=== PATIENT | male | born 1980 | race Caucasian/White ===

== ENCOUNTER 2020-10-15 22:43 | Inpatient (IN) | payer SELFPAY ==
[~2020-10-15] VITALS: Ht 193 cm; Wt 134.4 kg
[2020-10-16 01:18] LABS: BASOPHILS % (AUTO) 0.5 % (0.0-5.0); EOSINOPHILS % (AUTO) 1.2 % (0.0-8.0); HEMATOCRIT 48.5 % (42-54); LYMPHOCYTES % (AUTO) 26.5 % (21.0-51.0); MEAN CORPUSCULAR HEMOGLOBIN 29.5 pg (27.0-33.0); MEAN CORPUSCULAR HGB CONC 35.3 g/dL (32.0-36.0); MEAN CORPUSCULAR VOLUME 83.8 fL (79-99); MONOCYTES % (AUTO) 5.3 % (3.0-13.0); NEUTROPHILS % (AUTO) 66.1 % (40.0-77.0); PLATELET COUNT (AUTO) 189 K/uL (130-400); RED BLOOD CELL COUNT(AUTO) 5.79 MIL/uL (4.50-6.20); RED CELL DISTRIBUTION WIDTH 11.9 % (11.0-15.5); WHITE BLOOD COUNT (AUTO) 10.4 K/uL (4.8-10.8)
[2020-10-16] MEDS ORDERED: ZOSYN 3.375GM+NS 50ML 50 ML IV ONE ×3 (01:18→15:53)
[2020-10-16] MEDS ORDERED: 0.9%NACL 1000ML 1,000 ML IV ONE (01:22)
[2020-10-16 01:36] LABS: ALBUMIN 3.8 g/dL (3.5-5.0); BILIRUBIN,TOTAL 0.5 mg/dL (0.2-1.0); POTASSIUM 4.1 mmol/L (3.5-5.1); TOTAL PROTEIN, SERUM 7.9 g/dL (6.0-8.3)
[2020-10-16] MEDS ORDERED: IOHEXOL 350 MG/ML 100ML INFUS..BTL IV ONE (02:02)
[2020-10-16] MEDS ORDERED: INSULIN HUMULIN R 100 UNIT/ML 3ML ONE ×3 (02:13→17:24)
[2020-10-16] MEDS ORDERED: MORPHINE 2 MG SYG ONE ×2 (03:15→08:07)
[2020-10-16] MEDS ORDERED: DEXTROSE 50%-WATER 50 ML DISP.SYRIN IV PRN (04:00)
[2020-10-16] MEDS ORDERED: GLUCAGON 1MG KIT 1 MG ML IM PRN (04:00)
[2020-10-16] MEDS ORDERED: GUAIFENESIN-DM 200/20 MG 10 ML PO PRN (04:15)
[2020-10-16] MEDS ORDERED: LACTATED RINGERS 1000ML 1,000 ML IV SCH (04:15)
[2020-10-16] MEDS ORDERED: DIPHENHYDRAMINE HCL 25 MG CAPSULE PO PRN (04:15)
[2020-10-16] MEDS ORDERED: MAG/ALUM/SIMETH 30 ML UDCUP PO PRN (04:15)
[2020-10-16] MEDS ORDERED: DiphenhydrAMINE HCL 50 MG/ML VIAL IV PRN (04:15)
[2020-10-16] MEDS ORDERED: ONDANSETRON 4MG INJ IV PRN (04:15)
[2020-10-16] MEDS ORDERED: ACETAMINOPHEN 325 MG TAB PO PRN ×2 (04:15)
[2020-10-16] MEDS ORDERED: NITROGLYCERIN 0.4 MG SL TAB SL PRN (04:15)
[2020-10-16] MEDS ORDERED: LACTATED RINGERS 1000ML 1,000 ML IV ONE (04:47)
[2020-10-16] MEDS: ZOSYN 3.375GM+NS 50ML 50 ML IV SCH ×3 (05:15→20:24)
[2020-10-16 06:12] LABS: HEMOGLOBIN A1C 10.3 % (4.0-6.0)
[2020-10-16 06:42] LABS: APPEARANCE,URINE Clear (CLEAR); BILIRUBIN,URINE Negative (NEGATIVE); COLOR,URINE Yellow (YELLOW); GLUCOSE, URINE (UA) >=1000 mg/dL (NEGATIVE); KETONES,URINE 40 mg/dL (NEGATIVE); LEUKOCYTE ESTERASE ,URINE Negative (NEGATIVE); NITRATE,URINE Negative (NEGATIVE); OCCULT BLOOD,URINE Negative (NEGATIVE); PROTEIN,URINE Negative (NEGATIVE); UROBILINOGEN,URINE 0.2 mg/dL (0.2-1.0)
[2020-10-16 07:29] LABS: BACTERIA,URINE Rare /HPF (None Seen); RBC,URINE 0-1 /HPF (0-1); SQUAMOUS EPITHELIAL CELL,UR 0-2 /HPF (0-2); WBC,URINE None Seen /HPF (0-1)
[2020-10-16] MEDS: INSULIN HUMULIN R 100 UNIT/ML 3ML SQ SCH ×4 (07:30→20:27)
[2020-10-16] MEDS: INSULIN HUMULIN 70/30 100 UNIT/ML 3ML SQ SCH ×2 (07:30→20:26)
[2020-10-16] MEDS ORDERED: FAMOTIDINE 20MG VIAL IV ONE (08:22)
[2020-10-16] MEDS ORDERED: INSULIN HUMULIN 70/30 100 UNIT/ML 3ML SQ ONE (08:24)
[2020-10-16] MEDS ORDERED: METRONIDAZOLE 500MG/100ML BAG 100 ML ONE ×2 (08:31→15:53)
[2020-10-16] MEDS: FAMOTIDINE 20MG VIAL IV SCH ×2 (09:00→20:24)
[2020-10-16] MEDS: HEPARIN 5,000 UNIT VIAL SQ SCH ×2 (09:00→20:26)
[2020-10-16] MEDS ORDERED: 0.9%NACL 50ML 50 ML IV ONE (09:57)
[2020-10-16] MEDS ORDERED: HYDROCODONE/ACETAMINOPHEN 5/325 MG TAB ONE (12:41)
[2020-10-16] MEDS: METRONIDAZOLE 500MG/100ML BAG 100 ML IVPB SCH ×2 (14:00→20:24)
[2020-10-16 20:05] VITALS: BP 136/99
[2020-10-16] MEDS: MORPHINE 2 MG SYG IVP PRN (20:45)
[2020-10-16] MEDS ORDERED: INSU100V3 IJ (21:25)
[2020-10-16 23:54] VITALS: BP 138/69
[2020-10-17 03:50] VITALS: BP 137/68
[2020-10-17] MEDS: METRONIDAZOLE 500MG/100ML BAG 100 ML IVPB SCH ×3 (05:35→22:25)
[2020-10-17] MEDS: ZOSYN 3.375GM+NS 50ML 50 ML IV SCH ×3 (05:35→20:51)
[2020-10-17 06:15] LABS: BASOPHILS % (AUTO) 0.5 % (0.0-5.0); EOSINOPHILS % (AUTO) 2.6 % (0.0-8.0); HEMATOCRIT 44.8 % (42-54); LYMPHOCYTES % (AUTO) 33.5 % (21.0-51.0); MEAN CORPUSCULAR HEMOGLOBIN 28.8 pg (27.0-33.0); MEAN CORPUSCULAR HGB CONC 33.9 g/dL (32.0-36.0); MONOCYTES % (AUTO) 6.3 % (3.0-13.0); NEUTROPHILS % (AUTO) 56.6 % (40.0-77.0); PLATELET COUNT (AUTO) 185 K/uL (130-400); RED BLOOD CELL COUNT(AUTO) 5.27 MIL/uL (4.50-6.20); WHITE BLOOD COUNT (AUTO) 7.7 K/uL (4.8-10.8)
[2020-10-17 06:35] LABS: ALBUMIN 3.1 g/dL (3.5-5.0); BILIRUBIN,TOTAL 0.7 mg/dL (0.2-1.0); CREATININE 0.9 mg/dL (0.5-1.5); POTASSIUM 3.9 mmol/L (3.5-5.1); TOTAL PROTEIN, SERUM 6.8 g/dL (6.0-8.3)
[2020-10-17 07:25] VITALS: BP 127/77
[2020-10-17] MEDS: MORPHINE 2 MG SYG IVP PRN ×2 (07:54→16:21)
[2020-10-17] MEDS: 0.9%NACL 1000ML 1,000 ML IV SCH ×3 (09:13→23:40)
[2020-10-17] MEDS: FAMOTIDINE 20MG VIAL IV SCH ×2 (09:15→20:47)
[2020-10-17] MEDS: HEPARIN 5,000 UNIT VIAL SQ SCH ×2 (09:15→21:03)
[2020-10-17] MEDS: INSULIN HUMULIN 70/30 100 UNIT/ML 3ML SQ SCH ×2 (09:18→21:01)
[2020-10-17] MEDS: INSULIN HUMULIN R 100 UNIT/ML 3ML SQ SCH ×4 (09:19→21:03)
[2020-10-17 11:01] VITALS: BP 129/77
[2020-10-17 15:38] VITALS: BP 127/75
[2020-10-17] MEDS ORDERED: LACTULOSE 20 GM/30 ML UDCUP PO PRN (20:00)
[2020-10-17 20:31] VITALS: BP 129/70
[2020-10-17] MEDS: HYDROCODONE/ACETAMINOPHEN 5/325 MG TAB PO PRN (20:49)
[2020-10-17] MEDS: LACTULOSE 20 GM/30 ML UDCUP PO PRN (20:57)
[2020-10-17 23:40] VITALS: BP 119/59
[2020-10-18 04:15] VITALS: BP 115/64
[2020-10-18] MEDS: ZOSYN 3.375GM+NS 50ML 50 ML IV SCH ×3 (04:28→21:09)
[2020-10-18 05:01] LABS: BASOPHILS % (AUTO) 0.6 % (0.0-5.0); EOSINOPHILS % (AUTO) 3.9 % (0.0-8.0); HEMATOCRIT 43.7 % (42-54); LYMPHOCYTES % (AUTO) 46.2 % (21.0-51.0); MEAN CORPUSCULAR HEMOGLOBIN 28.9 pg (27.0-33.0); MEAN CORPUSCULAR VOLUME 87.6 fL (79-99); NEUTROPHILS % (AUTO) 41.5 % (40.0-77.0); PLATELET COUNT (AUTO) 202 K/uL (130-400); RED BLOOD CELL COUNT(AUTO) 4.99 MIL/uL (4.50-6.20); WHITE BLOOD COUNT (AUTO) 7.2 K/uL (4.8-10.8)
[2020-10-18] MEDS: METRONIDAZOLE 500MG/100ML BAG 100 ML IVPB SCH ×3 (05:09→21:09)
[2020-10-18 05:20] LABS: ALBUMIN 2.9 g/dL (3.5-5.0); BILIRUBIN,TOTAL 0.3 mg/dL (0.2-1.0); POTASSIUM 3.6 mmol/L (3.5-5.1); TOTAL PROTEIN, SERUM 6.4 g/dL (6.0-8.3)
[2020-10-18] MEDS: INSULIN HUMULIN R 100 UNIT/ML 3ML SQ SCH ×4 (06:09→21:16)
[2020-10-18 07:30] VITALS: BP 130/86
[2020-10-18] MEDS: INSULIN HUMULIN 70/30 100 UNIT/ML 3ML SQ SCH ×2 (08:04→21:15)
[2020-10-18] MEDS: FAMOTIDINE 20MG VIAL IV SCH ×2 (08:04→21:10)
[2020-10-18] MEDS: MORPHINE 2 MG SYG IVP PRN ×2 (08:05→17:10)
[2020-10-18] MEDS: HEPARIN 5,000 UNIT VIAL SQ SCH ×2 (08:35→21:14)
[2020-10-18] MEDS: LACTULOSE 20 GM/30 ML UDCUP PO PRN (09:37)
[2020-10-18 11:00] VITALS: BP 134/75
[2020-10-18] MEDS: 0.9%NACL 1000ML 1,000 ML IV SCH ×2 (13:29→23:41)
[2020-10-18 16:00] VITALS: BP 131/82
[2020-10-18] MEDS: HYDROCODONE/ACETAMINOPHEN 5/325 MG TAB PO PRN (21:10)
[2020-10-18 21:49] VITALS: BP 123/70
[2020-10-19] VITALS (20 sets, daily range): BP systolic 104–149; BP diastolic 50–91
[2020-10-19 04:51] LABS: BASOPHILS % (AUTO) 0.5 % (0.0-5.0); EOSINOPHILS % (AUTO) 2.9 % (0.0-8.0); HEMATOCRIT 42.5 % (42-54); LYMPHOCYTES % (AUTO) 38.5 % (21.0-51.0); MEAN CORPUSCULAR HEMOGLOBIN 29.5 pg (27.0-33.0); MEAN CORPUSCULAR HGB CONC 33.6 g/dL (32.0-36.0); MEAN CORPUSCULAR VOLUME 87.8 fL (79-99); MONOCYTES % (AUTO) 6.6 % (3.0-13.0); PLATELET COUNT (AUTO) 200 K/uL (130-400); RED BLOOD CELL COUNT(AUTO) 4.84 MIL/uL (4.50-6.20); RED CELL DISTRIBUTION WIDTH 11.9 % (11.0-15.5); WHITE BLOOD COUNT (AUTO) 5.9 K/uL (4.8-10.8)
[2020-10-19 05:10] LABS: ALBUMIN 2.9 g/dL (3.5-5.0); BILIRUBIN,TOTAL 0.4 mg/dL (0.2-1.0); CREATININE 0.8 mg/dL (0.5-1.5); POTASSIUM 3.5 mmol/L (3.5-5.1); TOTAL PROTEIN, SERUM 6.2 g/dL (6.0-8.3)
[2020-10-19] MEDS: METRONIDAZOLE 500MG/100ML BAG 100 ML IVPB SCH ×3 (05:22→21:34)
[2020-10-19] MEDS: ZOSYN 3.375GM+NS 50ML 50 ML IV SCH ×3 (05:22→20:55)
[2020-10-19] MEDS: INSULIN HUMULIN R 100 UNIT/ML 3ML SQ SCH ×4 (06:03→20:55)
[2020-10-19] MEDS: INSULIN HUMULIN 70/30 100 UNIT/ML 3ML SQ SCH ×2 (07:30→20:53)
[2020-10-19] MEDS: HEPARIN 5,000 UNIT VIAL SQ SCH ×2 (09:00→20:54)
[2020-10-19] MEDS: FAMOTIDINE 20MG VIAL IV SCH ×2 (09:55→21:09)
[2020-10-19] MEDS: MORPHINE 2 MG SYG IVP PRN ×2 (09:57→18:01)
[2020-10-19] MEDS ORDERED: LIDOCAINE 1%-EPI 1:100,000 20 ML VIAL IJ ONE (14:10)
[2020-10-19] MEDS ORDERED: LIDOCAINE PF 100MG/5ML (2%) SYRINGE 5ML ONE (15:42)
[2020-10-19] MEDS ORDERED: FENTANYL CITRATE PF 50 MCG/1 ML 2ML VIAL ONE (15:43)
[2020-10-19] MEDS ORDERED: MIDAZOLAM HCL 1 MG/ML 2ML VIAL ONE (15:43)
[2020-10-19] MEDS ORDERED: KETAMINE 50MG/ML SYRINGE 50 MG/ML DISP.SYRIN IV ONE (15:43)
[2020-10-19] MEDS ORDERED: PROPOFOL 10 MG/ML 20ML VIAL IV ONE (15:43)
[2020-10-19] MEDS ORDERED: GLYCOPYRROLATE 1 MG/5 ML SYRINGE ONE (15:56)
[2020-10-19] MEDS ORDERED: ONDANSETRON 4MG INJ ONE (16:13)
[2020-10-19] MEDS: 0.9%NACL 1000ML 1,000 ML IV SCH ×2 (20:50→21:02)
[2020-10-20] MEDS: MORPHINE 2 MG SYG IVP PRN ×4 (03:17→22:18)
[2020-10-20 04:09] VITALS: BP 126/76
[2020-10-20] MEDS: METRONIDAZOLE 500MG/100ML BAG 100 ML IVPB SCH ×3 (05:29→22:02)
[2020-10-20] MEDS: ZOSYN 3.375GM+NS 50ML 50 ML IV SCH ×3 (05:29→22:02)
[2020-10-20 05:56] LABS: BASOPHILS % (AUTO) 0.5 % (0.0-5.0); EOSINOPHILS % (AUTO) 2.7 % (0.0-8.0); LYMPHOCYTES % (AUTO) 41.6 % (21.0-51.0); MEAN CORPUSCULAR HGB CONC 33.4 g/dL (32.0-36.0); MEAN CORPUSCULAR VOLUME 86.7 fL (79-99); MONOCYTES % (AUTO) 6.4 % (3.0-13.0); NEUTROPHILS % (AUTO) 48.5 % (40.0-77.0); PLATELET COUNT (AUTO) 197 K/uL (130-400); RED BLOOD CELL COUNT(AUTO) 4.73 MIL/uL (4.50-6.20); RED CELL DISTRIBUTION WIDTH 11.9 % (11.0-15.5); WHITE BLOOD COUNT (AUTO) 6.4 K/uL (4.8-10.8)
[2020-10-20 06:11] LABS: CREATININE 0.9 mg/dL (0.5-1.5); POTASSIUM 3.8 mmol/L (3.5-5.1)
[2020-10-20] MEDS: INSULIN HUMULIN R 100 UNIT/ML 3ML SQ SCH ×4 (06:11→22:03)
[2020-10-20] MEDS: INSULIN HUMULIN 70/30 100 UNIT/ML 3ML SQ SCH ×2 (07:27→22:04)
[2020-10-20 08:00] VITALS: BP 128/59
[2020-10-20] MEDS: FAMOTIDINE 20MG VIAL IV SCH ×2 (09:44→22:02)
[2020-10-20] MEDS: HEPARIN 5,000 UNIT VIAL SQ SCH ×2 (10:15→21:00)
[2020-10-20 11:54] VITALS: BP 112/61
[2020-10-20] MEDS ORDERED: METR500T PO (13:47)
[2020-10-20] MEDS ORDERED: AMOX-429 PO (13:47)
[2020-10-20 16:00] VITALS: BP 145/86
[2020-10-20 19:35] VITALS: BP 141/73
[2020-10-20] MEDS ORDERED: TRAM50TA4 PO ×2 (19:59→20:01)
[2020-10-20 23:52] VITALS: BP 134/65
[2020-10-21 03:33] VITALS: BP 113/73
[2020-10-21] MEDS: ZOSYN 3.375GM+NS 50ML 50 ML IV SCH ×2 (05:18→12:12)
[2020-10-21] MEDS: METRONIDAZOLE 500MG/100ML BAG 100 ML IVPB SCH ×2 (05:18→15:25)
[2020-10-21] MEDS: HYDROCODONE/ACETAMINOPHEN 5/325 MG TAB PO PRN (05:26)
[2020-10-21 05:47] LABS: BASOPHILS % (AUTO) 0.5 % (0.0-5.0); EOSINOPHILS % (AUTO) 2.8 % (0.0-8.0); HEMATOCRIT 41.8 % (42-54); MEAN CORPUSCULAR HEMOGLOBIN 29.3 pg (27.0-33.0); MEAN CORPUSCULAR VOLUME 86.4 fL (79-99); MONOCYTES % (AUTO) 7.2 % (3.0-13.0); NEUTROPHILS % (AUTO) 48.8 % (40.0-77.0); PLATELET COUNT (AUTO) 209 K/uL (130-400); RED BLOOD CELL COUNT(AUTO) 4.84 MIL/uL (4.50-6.20); RED CELL DISTRIBUTION WIDTH 11.8 % (11.0-15.5); WHITE BLOOD COUNT (AUTO) 6.1 K/uL (4.8-10.8)
[2020-10-21 06:04] LABS: CREATININE 0.8 mg/dL (0.5-1.5); POTASSIUM 3.7 mmol/L (3.5-5.1)
[2020-10-21] MEDS: INSULIN HUMULIN R 100 UNIT/ML 3ML SQ SCH ×2 (06:51→12:13)
[2020-10-21] MEDS: INSULIN HUMULIN 70/30 100 UNIT/ML 3ML SQ SCH (07:53)
[2020-10-21 08:17] VITALS: BP 118/84
[2020-10-21] MEDS: HEPARIN 5,000 UNIT VIAL SQ SCH (09:00)
[2020-10-21] MEDS: FAMOTIDINE 20MG VIAL IV SCH (10:30)
[2020-10-21 12:06] VITALS: BP 120/67
[2020-10-21] MEDS ORDERED: MORPHINE 2 MG SYG ONE (12:44)
[2020-10-21] MEDS ORDERED: TRAM50TA2 PO (14:06)
== END 2020-10-21 17:00 | disposition home or self-care (01) | DRG 345 ==
LOC: EDH 22:43 → EDHIP 22:44 → 3CH 10-16 19:34
PROVIDERS: ADMIT Family Medicine; ATTEND Family Medicine
PROC: 0D9P0ZZ Drainage of Rectum, Open Approach (ICD-10-PCS; principal; 2020-10-19 15:50)
DX: K61.2 Anorectal abscess (principal); L02.31 Cutaneous abscess of buttock; L03.317 Cellulitis of buttock; E66.01 Morbid (severe) obesity due to excess calories; R39.89 Other symptoms and signs involving the genitourinary system; Z20.822 Contact with and (suspected) exposure to COVID-19; E11.65 Type 2 diabetes mellitus with hyperglycemia; Z68.35 Body mass index [BMI] 35.0-35.9, adult; Z91.14 Patient's other noncompliance with medication regimen; Z91.19 Patient's noncompliance with other medical treatment and regimen
CPT/HCPCS: 36415; 74177; 76857; 80048; 80053; 81001; 82948; 83036; 83605; 84145; 85025; 87040; 87070; 87076; 87205; 87426; A6266; G0378; J1644; J1815; J2001; J2250; J2405; J2543; J2704; J3010; J3490; J7030; J7120; Q9967; U0003